=== PATIENT | male | born 1985 | race Caucasian/White ===

== ENCOUNTER 2021-07-27 22:35 | Observation (INO) ==
[2021-07-27] MEDS ORDERED: SODIUM CHLORIDE 0.9% 1000ML 1,000 ML IV STA (22:51)
[2021-07-27] MEDS ORDERED: ONDANSETRON INJ 2 MG/ML 2 ML VIAL IV STA (22:51)
--- NOTE | 2021-07-27 22:54 | Emergency Department Note ---
Impression & Plan Acute appendicitis, Abdominal pain ED Provider Note NAME: ISHA FERREIRA AGE: 35 SEX: M : 1985 ARRIVES VIA: Walk-In INFORMANT: Patient, ED PROVIDER(S): Alden Artis DO CHIEF COMPLAINT: Abdominal pain HPI: The patient is a 35-year-old male who presented to the emergency department for an evaluation of abdominal pain. The patient has been noticing abdominal pain over the last few days. He states the pain began to worsen this evening after eating a burrito. He describes the pain as a burning sensation in the upp er abdomen. He has had no nausea or vomiting but has noticed some loose bowel movements. He notices no rectal bleeding. He denies having any back pain. He did not see his family doctor for the symptoms. The patient states this pain has somewhat improved since the onset earlier today. The patient does not have a history of cholecystitis and has had no history of pancreatitis. He has had no recent alcohol. He has had no recent trauma or fevers. The patient states the pain is worsened with food as well as palpation on the right upper quadrant. ROS: See above HPI for pertinent positives & negatives. A total of 10 systems reviewed and were otherwise negative. PAST MEDICAL HISTORY: See Below PAST SURGICAL HISTORY: See Below FAMILY HISTORY: See Below SOCIAL HISTORY: See Below HOME MEDICATIONS: See Below ALLERGIES: See Below VITALS: See Below PHYSICAL EXAMINATION: GENERAL: Patient is awake alert in no acute distress patient is resting comfortably and showing no signs of anxiety EYES: The conjunctivae are clear. The pupils are round and reactive. EARS, NOSE, MOUTH AND THROAT: The nose is without any evidence of any deformity. Mucous membranes are moist. Tongue is midline. NECK: The neck is nontender and supple. RESPIRATORY: Normal respiratory effort is noted there is no evidence of wheezing rhonchi or rales CARDIOVASCULAR: Regular rate and rhythm noted there no murmurs rubs or gallops normal S1 normal S2. GASTROINTESTINAL: The abdomen is soft and mildly distended. There is right upper quadrant tenderness to palpation but no guarding or rigidity. There is also right lower abdominal tenderness. MUSCULOSKELETAL/EXTREMITIES: There is no evidence of gross deformity full range of motion is noted in the hips and shoulders. SKIN: There is no obvious evidence of any rash. There are no petechiae, pallor or cyanosis noted. NEUROLOGIC: Patient is awake alert and oriented x3 MEDICAL DECISION MAKING: The patient is a 35-year-old male who presented to emergency department for an evaluation of right-sided abdominal pain. The patient did have reproducible right-sided abdominal pain on physical exam. He did not have a surgical abdomen on physical exam but had an elevated white blood cell count for this reason the patient had CT of the abdomen and pelvis. I discussed the patient's laboratory and radiographic studies with him. He was treated with IV fluids and IV pain medication in the emergency department. He was found have signs of acute appendicitis on CT. General surgery was consulted. They will evaluate the patient in the emergency department for further management and disposition. Triage Nursing notes reviewed. Prior medical records reviewed Vital Signs: reviewed and remarkable for no significant abnormalities Differential diagnosis: Etiologies such as appendicitis, diverticulitis, obstruction, inflammatory bowel disease, renal colic, PUD, biliary pathology, pancreatitis, mesenteric ischemia, aortic pathology, infections, genitourinary, UTI, perforated viscus, as well as others were entertained. ER treatment provided: See below Diagnostics interpreted by me: ECG: none Laboratory studies: As stated above and show below. Imaging studies: See below Consultation(s): I discussed this case with Clayton Esteves who is on-call for general surgery. They will evaluate the patient in the emergency department. Past Med/Surg History Social History Smoking Status: Current some day smoker Tobacco Type: E-cigarettes / Vaping Preferred Language: Italian Feels Safe at Home: Yes Results & Data (ED) Vital Signs Vital Signs - 24 hr 07/27/21 22:38 Temperature 36.6 C Temperature Source Temporal Artery Scan Respiratory Rate 18 Respiratory Effort / Characteristics Non-Labored Spontaneous Respiratory Depth Normal Respiratory Pattern Regular Blood Pressure 126/85 Blood Pressure Mean 98 Blood Pressure Position Sitting Pulse Oximetry 97 Oxygen Delivery Method Room Air Sepsis Recent Fever Within 48 Hours No Sepsis New/Unexplained Change in Mental Status N/A Sepsis Action Taken by Nursing No Action Required Home Medications Current Medication List: was personally reviewed by me Laboratory Data Attestation: I reviewed the patient's lab results. Result diagrams: 07/27/21 23:01 07/27/21 23:01 Lab Results 07/27/21 07/27/21 Range/Units 23:01 23:01 WBC 11.09 H (4.8-10.8) K/uL RBC 5.56 (4.7-6.1) M/uL Hgb 16.7 (14.0-18.0) g/dL Hct 46.8 (42-52) % MCV 84.2 (80-100) fL MCH 30.0 (25-34) pg MCHC 35.7 (32-36) g/dL RDW Std Deviation 38.0 (36.4-46.3) fL RDW Coeff of Wilfredo 12.5 (11.5-14.5) % Plt Count 275 (130-400) K/uL MPV 9.0 (7.4-10.4) fL Immature Gran % (Auto) 0.2 % Neut % (Auto) 77.3 % Lymph % (Auto) 14.5 % [place] % (Auto) 5.2 % Eos % (Auto) 2.3 % Baso % (Auto) 0.5 % Neut # (Auto) 8.58 H (1.4-6.5) K/uL Lymph # (Auto) 1.61 (1.2-3.4) K/uL [place] # (Auto) 0.58 (0.11-0.59) K/uL Eos # (Auto) 0.25 (0-0.5) K/uL Baso # (Auto) 0.05 (0-0.2) K/uL Immature Gran # (Auto) 0.02 (0.00-0.02) K/uL Sodium 138 (136-145) mmol/L Potassium 3.6 (3.5-5.1) mmol/L Chloride 104 (98-107) mmol/L Carbon Dioxide 28 (21-32) mmol/L Anion Gap 6 (3-11) BUN 13 (6-23) mg/dl Creatinine 1.03 (0.6-1.4) mg/dl Est Cr Clr Drug Dosing 107.8 ml/min Est GFR ( Amer) 107.1 ml/min Est GFR (Non-Af Amer) 92.4 ml/min BUN/Creatinine Ratio 12.6 (10-20) Glucose 122 H (70-99) mg/dl Calcium 9.3 (8.5-10.1) mg/dl Total Bilirubin 1.3 H (0.2-1.0) mg/dl AST 18 (13-39) U/L ALT 32 (7-52) U/L Alkaline Phosphatase 69 (34-104) U/L Total Protein 7.2 (6.0-8.3) gm/dl Albumin 4.5 (3.4-5.0) gm/dl Globulin 2.7 (2.5-4.0) gm/dl Albumin/Globulin Ratio 1.7 (0.9-2) Lipase 15 (11-82) U/L Administered Medications Morphine Sulfate (Morphine Sulfate 4 Mg/Ml 1 Ml Carp\Vial) 4 mg IV Q15M PRN PRN Reason: Pain Stop: 08/10/21 22:50 Last Admin: 07/28/21 00:39 Dose: 4 mg Documented by: [id number] Admin: 07/27/21 23:29 Dose: 4 mg Documented by: [id number] Discontinued Medications Sodium Chloride (Nss 1000ml) 1,000 mls @ 999 mls/hr IV .Q1H1M STA Stop: 07/27/21 23:51 Last Admin: 07/27/21 23:31 Dose: 999 mls/hr Documented by: [id number] Ioversol (Optiray 320 100ml) 95 ml IV ONCE ONE Stop: 07/27/21 23:51 Last Admin: 07/27/21 23:46 Dose: 95 ml Documented by: [id number] Ondansetron HCl (Ondansetron Inj 2 Mg/Ml 2 Ml Vial) 4 mg IV NOW STA Stop: 07/27/21 22:52 Last Admin: 07/27/21 23:29 Dose: 4 mg Documented by: [id number] Imaging Data Radiologist's Impression: Patient: ISHA FERREIRA (Male) : 81 Status: ER Date: 07/27/21 23:57 Room #: History: RIGHT SIDED ABD PAIN , DIARRHEA , APPENDIX PRESENT , 95 ML OPTIRAY 320 Slices: [phone] Priors: Evelio: Quan Brown @ [phone] Exams: CT ABDOMEN & PELVIS With Contrast Contrast: IV Amt: 95 ML Accession Numbers: [id number] Referring Physician: REFERRED SELF Preliminary Findings Only See Final Report For Complete Findings CT ABDOMEN & PELVIS With Contrast: Acute uncomplicated appendicitis. This is evidenced by dilation of the appendix to approximately 11 mm with surrounding fatty stranding. No evidence of perforation. No loculated intra-abdominal fluid collection. Bilateral L5 pars defects with 11 mm of grade 2 anterolisthesis of L5 on S1 and associated degenerative disc disease. No small bowel obstruction or small bowel mucosal thickening. No free air. No hydronephrosis. Radiologist: Ken Means MD Study ready at 23:58 and initial results transmitted at 00:24 Communications: Clear Time Type Notes Verify Receipt Discharge Plan Visit Data Chief Complaint: Abdominal Pain Stated Complaint: ABD PAIN, DIARRHEA ED Provider: Alden Artis Discharge Problem: Acute appendicitis, Abdominal pain Patient Disposition: Being Evaluated by Surgeon Forms Stand Alone Forms: [facility] Referrals Referrals: PCP,NO [Primary Care Provider] - Discharge Problem: Acute appendicitis Qualifiers: Acute appendicitis type: unspecified acute appendicitis type Qualified Code(s): K35.80 - Unspecified acute appendicitis Abdominal pain Qualifiers: Abdominal location: right lower quadrant Qualified Code(s): R10.31 - Right lower quadrant pain
[2021-07-27 23:10] LABS: Basophils # (auto) 0.05 K/uL (0-0.2); Basophils % (auto) 0.5 %; Eosinophils # (auto) 0.25 K/uL (0-0.5); Eosinophils % (auto) 2.3 %; Hematocrit (blood only) 46.8 % (42-52); Hemoglobin 16.7 g/dL (14.0-18.0); Immature Granulocytes # (auto) 0.02 K/uL (0.00-0.02); Immature Granulocytes % (auto) 0.2 %; Lymphocytes # (auto) 1.61 K/uL (1.2-3.4); Lymphocytes % (auto) 14.5 %; Mean Corpuscular Hgb Conc 35.7 g/dL (32-36); Mean Corpuscular Volume 84.2 fL (80-100); Monocytes # (auto) 0.58 K/uL (0.11-0.59); Monocytes % (auto) 5.2 %; Neutrophils # (auto) 8.58 K/uL (1.4-6.5); Neutrophils % (auto) 77.3 %; Platelet Count 275 K/uL (130-400); RDW Coefficient of Variation 12.5 % (11.5-14.5); Red Blood Count 5.56 M/uL (4.7-6.1); White Blood Count 11.09 K/uL (4.8-10.8)
[2021-07-27 23:28] LABS: Albumin Globulin Ratio 1.7 (0.9-2); Albumin Level 4.5 gm/dl (3.4-5.0); BUN Creatinine Ratio 12.6 (10-20); Bilirubin,Total 1.3 mg/dl (0.2-1.0); Calcium 9.3 mg/dl (8.5-10.1); Creatinine Clr Calc Pharmacy 107.8 ml/min; Est GFR (African American) 107.1 ml/min; Est GFR (Non-African American) 92.4 ml/min; Globulin 2.7 gm/dl (2.5-4.0); Potassium 3.6 mmol/L (3.5-5.1); Total Protein 7.2 gm/dl (6.0-8.3)
[2021-07-27] MEDS: MoRPHine SULFATE 4 MG/ML 1 ML CARP\\VIAL IV PRN (23:29)
[2021-07-27] MEDS ORDERED: OPTIRAY 320 100ml IV ONE (23:50)
[2021-07-28] MEDS: MoRPHine SULFATE 4 MG/ML 1 ML CARP\\VIAL IV PRN (00:39)
[2021-07-28] MEDS ORDERED: cefOXitin 1,000 MG/50 ML BAG IV STA (00:59)
--- NOTE | 2021-07-28 01:19 | History & Physical Report ---
Date of Service July 28, 2021 Assessment & Plan (1) Acute appendicitis: Plan: Due to the patient's clinical presentation as well as his imaging he will be admitted to the hospital proceeding as follows: We will maintain n.p.o. status Analgesia will be provided Antiemetics will be provided We will hydrate him with IV fluids We will administer antibiotics. The treating emergency room physician has initiated cefoxitin which we will continue I discussed performing an appendectomy with the patient. I have outlined the benefits which include preventing appendiceal rupture and improving his pain. I discussed the risks which include but are not limited to bleeding, infection, injury to bowel or adjacent anatomical structures, or the need for additional surgery. I discussed alternatives which include observation with antibiotics. I discussed risks of not performing surgery which include appendiceal rupture. The patient wishes to proceed and I have obtained consent for a laparoscopic, possible open appendectomy. Will use SCDs for DVT prevention. We will avoid chemical means for the present time due to anticipated surgery. Additional recommendation was made based on operative findings and his clinical course as it unfolds. He will be a level 1 full code History of Present Illness Chief Complaint: "I have abdominal pain" Primary Care Provider: NO PCP This is a 35-year-old male who presented to [facility] emergency department secondary to abdominal pain. The patient notes that he has been having nonspecific "burning" without modifying factors in his suprapubic area for several weeks. As this sensation was not very severe the patient did not seek medical attention but he noted that today he had worsening generalized abdominal pain that became unbearable so he presented to the emergency department. Patient noted that the pain was initially in his upper abdomen but has since settled into the lower abdomen on the right-hand side. He denied any fevers, shakes, chills. He did not have any nausea or vomiting. Other than pain medicine administered in the emergency department he did not note any modifying factors for his pain. He notes his most recent oral intake was at approximately noon on 07/27/2021. He notes that he has never had any abdominal surgery. I question the patient on his functional status and he notes he leads an active lifestyle. He notes that he can negotiate steps and inclines without any chest pain or shortness of breath. Patient says that he does not smoke cigarettes but he does vape. He denies daily alcohol use. He denies any family history of heart disease. In the emergency department the patient had labs and imaging which I independently reviewed. He underwent a CT scan of the abdomen and pelvis utilizing IV contrast. This study showed the patient had appendiceal dilatation of approximately 11 mm with some surrounding fat stranding. Interpreting radiologist felt that this represented acute appendicitis. There is no evidence of perforation. CBC revealed white blood cell count had a slight elevation to 11.0. Hemoglobin, hematocrit, and platelet count are all within normal range. Chemistry profile showed sodium, potassium, BUN, and creatinine were all within normal range. There is no significant elevation of his LFTs other than a slight elevation of the total bilirubin to 1.3. His lipase was not elevated. A COVID test has been performed and is pending. At the time of my interview he was resting comfortably in bed and he was in no distress. Allergies Allergy/AdvReac Type Severity Reaction Status Date / Time No Known Allergies Allergy Unverified 07/28/21 01:37 Past Med/Surg History Social History Smoking Status: Never smoker Tobacco Type: E-cigarettes / Vaping Hx Alcohol Use: No Hx Substance Use: No Preferred Language: Yi Communication Ability: Effective Gauntlet Pairer Required: No Beliefs That Will Affect Care: None Current Living Situation: Spouse and Family Other Information That Helps Us Care for You: No Feels Safe at Home: Yes Safety Concerns: Feels Safe At This Time Assistive Devices: None Review of Systems Constitutional: no fever and no chills Eyes: no diplopia Ear, Nose, Mouth, Throat: no ear pain and no sore throat Respiratory: no cough and no dyspnea Cardiovascular: no chest pain Gastrointestinal: + abdominal pain; no nausea and no vomiting Genitourinary: no dysuria Musculoskeletal: no back pain Integumentary: no rash Neurologic: no localized weakness Physical Exam Constitutional: WD/WN, vitals as above Eyes: no conjunctival abnormality ENMT: Ears: no hearing impairment and no external ear abnormality Mouth: no oropharynx abnormality Neck: trachea midline Respiratory: normal respiratory effort, lungs clear to auscultation Cardiovascular: Rate/Rhythm: regular rate and regular rhythm Gastrointestinal (Abdomen): Patient's abdomen is soft and nondistended. Bowel sounds are present. Patient was noted to have generalized abdominal pain throughout his abdomen but appeared to be most significant in the right lower quadrant over McBurney's point. Rovsing sign was noted to be positive. Musculoskeletal: No gross orthopedic abnormalities. No calf tenderness. Skin: no rashes Neurologic: moves all extremities Psychiatric: A+Ox3, euthymic affect Results & Data Results & Data ([facility]) Vital Signs (Past 12 Hours) Vital Signs Temp Resp BP Pulse Ox 07/27/21 22:38 36.6 C 18 126/85 97 Supervising Physician Co-Signing Physician Notes Patient seen and examined-patient with acute appendicitis For laparoscopic appendectomy possible open operation For later this morning-continue n.p.o. and IV antibiotics PG Care Time/CCT Total # of Minutes Spent Total Time Spent with Patient: Total time spent is greater than 50% in coordination of care (as documented) at patient's floor/unit and/or counseling patient: Coding Level of Care Code INT OBSERVATION CARE 70M LVL 3 Diagnoses Acute appendicitis K35.80 Acute appendicitis type: unspecified acute appendicitis type (1) Acute appendicitis Acute appendicitis type: unspecified acute appendicitis type Qualified Code(s): K35.80 - Unspecified acute appendicitis
[2021-07-28 01:20] LABS: Appearance Urine Clear (Clear); Bilirubin Urine Negative (Negative); Blood Urine Negative (Negative); Color Urine Yellow; Glucose Urine UA Negative (Negative); Ketones Urine Negative (Negative); Leukocyte Esterase Urine Negative (Negative); Nitrite Urine Negative (Negative); Protein Urine Negative (Negative); Specific Gravity Urine 1.029 (1.000-1.030); Urobilinogen Urine Negative (Negative)
[2021-07-28] MEDS ORDERED: MoRPHine SULFATE 4 MG/ML 1 ML CARP\\VIAL IV PRN (01:27)
[2021-07-28] MEDS ORDERED: ACETAMINOPHEN 1,000 MG/100 ML VIAL IV PRN (01:27)
[2021-07-28] MEDS ORDERED: ONDANSETRON INJ 2 MG/ML 2 ML VIAL IV PRN ×3 (01:27→12:09)
[2021-07-28] MEDS: LACTATED RINGER'S 1,000 ML IV SCH ×2 (01:43→13:13)
[2021-07-28] MEDS: HYDROmorphone INJ 0.5 MG/0.5 ML SYR IV PRN ×4 (02:25→20:37)
[2021-07-28] MEDS: cefOXitin 2,000 MG in DEXTROSE 5% 50 ML IV SCH ×3 (07:24→19:49)
--- NOTE | 2021-07-28 08:08 | CT Scan Report ---
CT abd pelvis IV con only CLINICAL HISTORY: RUQ pain . Diarrhea COMPARISON STUDY: No previous studies for comparison. CT DOSE: 592.69 mGy.cm TECHNIQUE: Standard CT of the Abdomen and Pelvis was performed with IV contrast. A dose lowering january hnique was utilized adhering to the principles of ALARA. Contrast Volume: Optiray 320, 95 ml. The patient did not receive oral contrast. FINDINGS: Lung base: The lung bases are clear. Abdominal cavity: There is no evidence for abdominal mass, adenopathy or ascites. Liver: There is homogeneous attenuation of the liver parenchyma. There is no evidence for enhancing m ass lesion. Spleen: There is homogeneous attenuation of the splenic parenchyma. There is no enhancing mass lesion . Pancreas: There is homogeneous attenuation of the pancreatic parenchyma. There is no evidence for mas s lesion or peripancreatic fluid collection. Gall Bladder: The gallbladder is partially contracted due to the patient's nonfasting state. Adrenal glands: The adrenal glands are normal in size and attenuation. There is no evidence for enhan cing mass lesion. Kidneys: There is homogeneous attenuation of the renal parenchyma bilaterally. There is no evidence f or renal calculus or hydronephrosis. There is no evidence for enhancing mass. Bowel: The stomach is grossly distended with liquid and food stuff. The bowel loops are otherwise nor vasquez placed within the abdomen and pelvis without evidence for dilatation or obstruction. There is dilatation of the appendix with enhancement of the appendiceal wall. It measures approximate ly 12 mm. Mild periappendiceal inflammatory changes are seen in the findings represent early acute ap pendicitis. There is no evidence for perforation or abscess. There is no evidence for free air. Bladder: The bladder is within normal limits with no evidence for focal mass, calculus or diverticulu m. : There is no evidence for pelvic mass or adenopathy. There is no evidence for pelvic ascites. Vasculature: There is no evidence for aneurysmal dilatation of the abdominal aorta. Osseous structures: There is no acute osseous pathology. IMPRESSION: 1. Early acute appendicitis with periappendiceal inflammatory change. No perforation or abscess. ACT 112: Negative or not required by law. Electronically signed by: Hugo Nicholas M.D. 07/28/2021 8:07 AM
[2021-07-28] MEDS ORDERED: PROPOFOL IV EMULSION 10 MG/ML 20 ML VIAL IV ONE (08:24)
[2021-07-28] MEDS ORDERED: MIDAZOLAM HCL 1 MG/ML 2ML VIAL ONE (08:25)
[2021-07-28] MEDS ORDERED: fentaNYL citrate 100 MCG/2 ML VIAL ONE (08:25)
[2021-07-28] MEDS ORDERED: ROCURONIUM BROMIDE 10 MG/ML 5 ML VIAL IV ONE (08:27)
[2021-07-28] MEDS ORDERED: LIDOCAINE 2% 2 ML VIAL/AMP(20MG/ML) INFIL ONE (08:27)
[2021-07-28] MEDS ORDERED: BUPIVACAINE 0.5 % 5 MG/1 ML MPF 30ML VIAL ONE (08:45)
--- NOTE | 2021-07-28 09:10 | Anesthesiology Consultation ---
Date of Service July 28, 2021 Assessment & Plan (1) Encounter for pre-operative examination: Chart Review Chart Review: Acceptable Risk for Surgery History Surgery Operation Date: 07/28/21 11:00 Proposed Procedures p Laparoscopic Appendectomy - Doni Soto MD, FACS Height/Weight Height: 6 ft Weight: 92.533 kg Allergies Allergy/AdvReac Type Severity Reaction Status Date / Time No Known Allergies Allergy Unverified 07/28/21 01:37 Medications Active Medications Generic Name Dose Route Start Last Admin Trade Name Freq PRN Reason Stop Dose Admin Hydromorphone HCl 0.5 mg 07/28/21 02:13 07/28/21 07:15 Hydromorphone Inj 0.5 Mg/0.5 Ml Syr IV 08/11/21 02:12 0.5 mg Q6H PRN Administration Pain Lactated Ringer's 1,000 mls @ 125 mls/hr 07/28/21 01:30 07/28/21 01:43 Lr IV 08/27/21 01:29 125 mls/hr .Q8H MASON Administration Acetaminophen 1,000 mg in 100 mls @ 400 mls/hr 07/28/21 01:27 07/28/21 04:01 Ofirmev IV 07/31/21 01:26 Infused Q8H PRN Infusion Pain Cefoxitin Sodium 2,000 mg/ 60 mls @ 100 mls/hr 07/28/21 08:00 07/28/21 08:18 Dextrose IV 08/07/21 07:59 Infused Q6H MASON Infusion NPO Date Last Intake of Fluids: 07/27/21 Time Last Intake of Fluids: 23:59 Date Last Intake of Solids: 07/27/21 Time Last Intake of Solids: 23:59 Past Medical History hx vaping Social History Smoking Status: Never smoker Hx Alcohol Use: No Hx Substance Use: No substance use type: does not use Physical Exam Vital Signs Last Vital Signs Temp 37.0 C 07/28/21 08:26 Pulse 95 H 07/28/21 08:26 Resp 18 07/28/21 08:26 BP 109/66 07/28/21 08:26 Pulse Ox 94 07/28/21 08:26 Testing Laboratory Results 07/27/21 23:01 07/27/21 23:01 Urine Color Yellow 07/28/21 00:41 Urine Appearance Clear (Clear) 07/28/21 00:41 Urine pH 6.0 (4.5-7.5) 07/28/21 00:41 Ur Specific [place] 1.029 (1.000-1.030) 07/28/21 00:41 Urine Protein Negative (Negative) 07/28/21 00:41 Urine Glucose (UA) Negative (Negative) 07/28/21 00:41 Urine Ketones Negative (Negative) 07/28/21 00:41 Urine Nitrite Negative (Negative) 07/28/21 00:41 Ur Leukocyte Esterase Negative (Negative) 07/28/21 00:41
[2021-07-28] MEDS ORDERED: fentaNYL citrate 100 MCG/2 ML VIAL IV PRN (09:14)
[2021-07-28] MEDS ORDERED: ATROPINE SULFATE 0.1 MG/ML 10ML SYR IV PRN (09:14)
[2021-07-28] MEDS ORDERED: KETOROLAC 30 MG/ML VIAL IV PRN (09:14)
[2021-07-28] MEDS ORDERED: NEOSTIGMINE METHYLSULFATE 1 MG/ML 10ML VIAL ONE (09:39)
[2021-07-28] MEDS ORDERED: ONDANSETRON INJ 2 MG/ML 2 ML VIAL ONE (09:39)
[2021-07-28] MEDS ORDERED: GLYCOPYRROLATE 0.2 MG/ML VIAL ONE (09:39)
[2021-07-28] MEDS ORDERED: HYDROmorphone INJ 2 MG/ML SYR/VIAL ONE (09:43)
--- NOTE | 2021-07-28 10:09 | Post Operative Brief Note ---
PG Immediate Post Op with CF Date of Surgery July 28, 2021 Pre & Post Diagnosis Operation Date: 07/28/21 11:00 Pre-Op Diagnosis: Acute Appendicitis Post-Op Diagnosis: Gangrenous Appendicitis I identified the patient and participated in the time-out.: Yes Procedure Operation Date: 07/28/21 11:00 Actual Procedures p Laparoscopic Appendectomy - Doni Soto MD, FACS Surgeon Doni Soto MD, FACS Convention Services Director Nurses Estimated Blood Loss 10 Findings Consistent with Post-Op Diagnosis Gangrenous appendix with mild surrounding cloudy fluid Specimens Specimen Description: A: Appendix
[2021-07-28] MEDS ORDERED: ACETAMINOPHEN 1,000 MG/100 ML VIAL IV ONE (10:30)
--- NOTE | 2021-07-28 10:55 | Anesthesiology Progress Note ---
Date of Service July 28, 2021 Anesthesia Post Procedure Vital Signs Vital Signs: Temp Pulse Pulse Pulse Resp BP BP 07/28/21 10:45 81 17 123/69 07/28/21 10:35 86 13 126/72 07/28/21 10:25 37.2 C 83 17 121/74 07/28/21 08:26 37.0 C 95 H 18 109/66 07/28/21 03:26 36.9 C 76 14 111/71 07/28/21 02:40 62 18 124/80 07/28/21 02:36 62 18 133/73 07/27/21 22:38 36.6 C 18 126/85 Pulse Ox 07/28/21 10:45 100 07/28/21 10:35 98 07/28/21 10:25 98 07/28/21 08:26 94 07/28/21 03:26 96 07/28/21 02:40 95 07/28/21 02:36 99 07/27/21 22:38 97 Pain Intensity Right Abdomen: Pain Intensity: 5 Transfer of Care Handoff Completed per policy Notes Mental Status: alert / awake / arousable Patient Amnestic to Procedure: Yes Nausea / Vomiting: adequately controlled Pain: adequately controlled Airway Patency, RR, SpO2: stable & adequate BP & HR: stable & adequate Hydration State: stable & adequate Anesthetic Complications: no major complications apparent
[2021-07-28] MEDS ORDERED: ACETAMINOPHEN 325 MG TAB PO PRN (12:09)
[2021-07-28] MEDS ORDERED: IBUPROFEN 600 MG TAB PO PRN (12:09)
[2021-07-28] MEDS ORDERED: HYDROCODONE/ACETAMOPHEN 5/325MG TAB PO PRN (12:09)
[2021-07-28] MEDS ORDERED: PROMETHAZINE HCL 12.5 MG in SODIUM CHLORIDE 0.9% 50 ML IV PRN (12:09)
[2021-07-28] MEDS ORDERED: PROMETHAZINE HCL 25 MG in SODIUM CHLORIDE 0.9% 50 ML IV PRN (12:09)
[2021-07-28] MEDS: HYDROCODONE/ACETAMOPHEN 5/325MG TAB PO PRN ×2 (13:12→17:38)
--- NOTE | 2021-07-28 14:44 | Operative Report (OR) ---
DATE OF OPERATION: 07/28/2021. NAME OF OPERATION: Laparoscopic appendectomy. PREOPERATIVE DIAGNOSIS: Acute appendicitis. POSTOPERATIVE DIAGNOSES: Acute appendicitis with gangrenous appendicitis. STAFF SURGEON: Doni Soto MD. WEB GRAPHIC DESIGNER: Nurses. ANESTHESIA: General. DESCRIPTION OF PROCEDURE: The patient was brought in the operating room and placed on the operating table in supine position. His abdomen was prepped and draped in the usual fashion. A 0.5% plain Mar melvin was used to anesthetize all incisions. Incision was made above the umbilicus, carrying dissect ion down to the fascia, placing a Veress needle producing pneumoperitoneum, placing an 11 mm port. U nder visualization, a 5 mm port was placed suprapubically and then a 12 mm port placed in left lower quadrant. The cecum was reflected. The appendix was visualized. There was some mild cloudy fluid. This was aspirated. The appendix was gangrenous. There was no overt abscess. The appendix was ret racted. The mesoappendix was transected using two loads of Endo-AL brown load and then the base of the appendix transected using a third load of Endo-AL brown. The appendix was placed in an Endobag and then removed through the left lower quadrant site. At this point, irrigation and hemostasis were maintained. All ports were then removed. Fascia at the umbilicus and left lower quadrant closed us ing 0 Vicryl suture. The subcutaneous tissue reapproximated using 2-0 plain suture. The skin was re approximated using subcuticular 4-0 Monocryl, Dermabond and the umbilical site and suprapubic site an d then Steri-Strips in the left lower quadrant. The patient was transferred to recovery room in stab le condition. Job ID: [id number]
[2021-07-28] MEDS: DOCUSATE SODIUM/SENNA 50/8.6MG TAB PO SCH (20:37)
[2021-07-29] MEDS: HYDROCODONE/ACETAMOPHEN 5/325MG TAB PO PRN ×3 (02:12→12:35)
[2021-07-29] MEDS: LACTATED RINGER'S 1,000 ML IV SCH ×2 (02:12→10:41)
[2021-07-29] MEDS: cefOXitin 2,000 MG in DEXTROSE 5% 50 ML IV SCH ×2 (02:16→08:27)
--- NOTE | 2021-07-29 05:26 | Surgery Progress Note ---
Date of Service July 29, 2021 Assessment & Plan (1) Acute appendicitis: Plan: Status post laparoscopic appendectomy on 07/28/2021 (postop day #1) Continue analgesics Continue antiemetics Continue diet as tolerated Increase activity as tolerated Continue antibiotics to form of cefoxitin while patient is in the hospital Consider discharge home later today if patient continues to do well Admission and Anticipated Discharge Date Admission Date: July 28, 2021 Subjective Patient is resting comfortably in bed. He notes his abdominal pain has improved since his surgery. He tolerated regular food for dinner last evening without any nausea vomiting. He denies any bowel movement or flatus since surgery. Physical Exam Gastrointestinal (Abdomen): Abdomen is soft and nondistended. Bowel sounds are hypoactive. He has appropriate pain near surgical incisions. Dressings are clean, dry, intact Results & Data ([facility]) Vital Signs (Past 12 Hours) Vital Signs Temp Pulse Resp BP Pulse Ox 07/29/21 04:39 36.8 C 73 18 105/66 93 07/29/21 00:06 37.1 C 76 18 101/63 93 07/28/21 19:37 37.9 C H 18 96/59 L 94 PG Care Time/CCT Total # of Minutes Spent Total Time Spent with Patient: Total time spent is greater than 50% in coordination of care (as documented) at patient's floor/unit and/or counseling patient: Coding Level of Care Code None Diagnoses Acute appendicitis K35.80 Acute appendicitis type: unspecified acute appendicitis type (1) Acute appendicitis Acute appendicitis type: unspecified acute appendicitis type Qualified Code(s): K35.80 - Unspecified acute appendicitis
[2021-07-29] MEDS: DOCUSATE SODIUM/SENNA 50/8.6MG TAB PO SCH (08:24)
[2021-07-29] MEDS ORDERED: MAGNESIUM HYDROXIDE SUSP 30 ML UDC PO SCH (09:00)
--- NOTE | 2021-07-29 09:05 | Discharge Summary (DS) ---
DATE OF ADMISSION: 07/28/2021 DATE OF DISCHARGE: 07/29/2021 PRINCIPAL DIAGNOSIS: Acute appendicitis. HISTORY OF PRESENT ILLNESS: The patient is a 35-year-old male who presented to the Emergency Room in the evening of 07/27/2021, admitted early a.m. 07/28/2021. He was taken to the operating room the day for laparoscopic appendectomy, which he tolerated well. He has done well and is felt stable for discharge on 07/29/2021 to be followed in the surgical clinic within 1-2 weeks. Job ID: [id number]
== END 2021-07-29 14:07 | disposition home or self-care (01) ==
LOC: ED 22:35 → 3W 22:35